=== PATIENT | male | born 1995 | race Caucasian/White ===

== ENCOUNTER 2020-04-03 06:54 | Outpatient (NON) | payer BC, SELFPAY ==
[2020-04-04 01:24] LABS: SARS-CoV-2 RNA PCR Negative
== END 2020-04-03 06:55 ==
PROVIDERS: PCP Family Medicine; Visit Provider Family Medicine
DX: R68.89 Other general symptoms and signs (principal); Z20.828 Contact with and (suspected) exposure to other viral communicable diseases
CPT/HCPCS: 87635; C9803; U0003

== ENCOUNTER 2020-04-04 10:48 | Emergency (ER) | payer BC, SELFPAY ==
--- NOTE | ~2020-04-04 | XR_ITS ---
EXAMINATION: XR knee RT 3V DATE: 04/04/2020 11:27 INDICATION: Right knee pain. TECHNIQUE: 3 views of right knee were obtained. COMPARISON: Right tibia and fibula radiographs 02/15/2012 FINDINGS: Bone alignment is normal. No fracture. Joint spaces are normal. There is a large knee joint effusion. IMPRESSION: 1. Large knee joint effusion. Reviewed, dictated and finalized at location A. INE MAINTENANCE
[2020-04-04 10:57] VITALS: PULSE 85; RESP 18; TEMP 35.6; O2SAT 97
--- NOTE | 2020-04-04 11:26 | ED.GENADULT ---
HPI - General Adult General Chief complaint: Extremity Injury, Lower <Sean Juares PA-C - Last Filed: 04/04/20 12:21> Stated complaint: right knee dislocation since sunday <Sean Juares PA-C - Last Filed: 04/04/20 12:21> Time Seen by Provider: 04/04/20 10:50 <Sean Juares PA-C - Last Filed: 04/04/20 12:21> Source: patient <Sean Juares PA-C - Last Filed: 04/04/20 12:21> Mode of arrival: ambulatory <Sean Juares PA-C - Last Filed: 04/04/20 12:21> Limitations: no limitations <Sean Juares PA-C - Last Filed: 04/04/20 12:21> History of Present Illness HPI narrative: Patient is a 24-year-old male who presents with right knee pain patient on Sunday had dislocated his patella and fell onto the right knee was evaluated yesterday at urgent care sent home and then called yesterday evening by the urgent care radiologist instructing him that his patella may be displaced and he needs to go and have it evaluated patient presents for this patient notes swelling and moderate aching pain of the knee joint patient denies other injuries or complaints and on arrival is in the room in no distress <Sean Juares PA-C - Last Filed: 04/04/20 12:21> Related Data Allergies/adverse reactions: Allergies Allergy/AdvReac Type Severity Reaction Status Date / Time fluoxetine Allergy Unknown Headache Verified 04/04/20 11:05 nickel Allergy Unknown Skin Verified 04/04/20 11:05 Reaction <Sean Juares PA-C - Last Filed: 04/04/20 12:21> Review of Systems Review of Systems: All systems reviewed & are unremarkable except as noted in HPI and below <Sean Juares PA-C - Last Filed: 04/04/20 12:21> PMFSH Social History Social History: Social History Alcohol intake: never <Sean Juares PA-C - Last Filed: 04/04/20 12:21> Exam Narrative: Exam Narrative: GENERAL: Well-appearing, well-nourished, and in no acute distress. HEAD: Normocephalic, atraumatic. EYES: PERRLA and EOMI. ENT: Nares clear, no rhinorrhea or epistaxis. Mucous membranes moist. EXTREMITIES: Swelling and tenderness of the right knee joint SKIN: Warm, dry, no rash. NEURO: No focal deficits. Alert and oriented x3. Neurovascularly intact. Capillary refill less than 2 seconds PSYCH: Normal mood and affect. <KEM Joyce Last Filed: 04/04/20 12:21> Course Course Emergency Course: Patient placed in the immobilizer will follow with orthopedist for further evaluation neurovascularly intact pain well tolerated felt appropriate for outpatient reevaluation <KEM Joyce Last Filed: 04/04/20 12:21> Vital Signs Vital signs: Vital Signs Temperature 96.1 F L 04/04/20 10:57 Pulse Rate 85 04/04/20 10:57 Respiratory Rate 18 04/04/20 10:57 Pulse Oximetry 97 04/04/20 10:57 Temperature 98.1 F 04/04/20 12:29 Pulse Rate 78 04/04/20 12:32 Respiratory Rate 16 04/04/20 12:29 Blood Pressure 148/88 H 04/04/20 12:32 Pulse Oximetry 100 04/04/20 12:32 <KEM Joyce Last Filed: 04/04/20 12:21> Vital Signs Temperature 96.1 F L 04/04/20 10:57 Pulse Rate 85 04/04/20 10:57 Respiratory Rate 18 04/04/20 10:57 Pulse Oximetry 97 04/04/20 10:57 Temperature 98.1 F 04/04/20 12:29 Pulse Rate 78 04/04/20 12:32 Respiratory Rate 16 04/04/20 12:29 Blood Pressure 148/88 H 04/04/20 12:32 Pulse Oximetry 100 04/04/20 12:32 <Asmita Dumas MD - Last Filed: 04/04/20 17:10> Medical Decision Making MDM Narrative Medical decision making narrative: Patients injury or pain is consistent with musculoskeletal etiology. No signs of neurological or vascular compromise on exam. Compartments and tisues are soft without signs of compartment syndrome. Pain is felt appropriate for further evaluation on an outpatient basis. <KEM Joyce Last File
[2020-04-04 12:04] VITALS: BP 127/67; PULSE 86; RESP 18; TEMP 36.1; O2SAT 100
[2020-04-04 12:29] VITALS: BP 132/51; PULSE 81; RESP 16; TEMP 36.7; O2SAT 100
[2020-04-04 12:32] VITALS: BP 148/88; PULSE 78; O2SAT 100
== END 2020-04-04 12:33 | disposition home or self-care (01) ==
PROVIDERS: Emergency Provider General Practice; PCP Family Medicine
DX: S83.104A Unspecified dislocation of right knee, initial encounter (principal); W19.XXXA Unspecified fall, initial encounter
CPT/HCPCS: 73562; 99283

== ENCOUNTER 2020-04-20 16:51 | Outpatient (CLI) | payer BC, SELFPAY ==
--- NOTE | ~2020-04-20 | MR_ITS ---
EXAMINATION: MR knee RT wo con DATE: 04/20/2020 17:38 INDICATION: Unspecified dislocation of right patella, initial encounter. TECHNIQUE: Magnetic resonance imaging (MRI) of the right knee was performed without intravenous contr ast. Sequences included axial PD-weighted FS FSE, coronal PD-weighted FSE and PD-weighted FS FSE, sag ittal PD-weighted FSE, and sagittal T2-weighted FS FSE. COMPARISON: Right knee radiographs 04/04/2020 FINDINGS: Medial compartment: Medial meniscus is normal. Medial compartment cartilage is normal. Lateral compartment: Lateral meniscus is normal. Lateral compartment cartilage is normal. Patellofemoral compartment: Patellar cartilage is normal. Trochlear dysplasia is noted. The trochlear cartilage is normal. Ligaments and tendons: The anterior and posterior cruciate ligaments are intact. Medial collateral ligament is intact. There is a tear of the medial retinaculum. Lateral collateral ligament complex is intact. There is mild pa tellar tendinopathy. Fluid: There is a moderate-sized knee joint effusion. There is a small Tapia's cyst. There is mild superfici al infrapatellar bursitis. Osseous/other: There is bone marrow edema-like signal intensity in distal medial patella and in lateral aspect of la teral femoral condyle, consistent with kissing contusions from patellar dislocation-relocation injury . IMPRESSION: 1. Patellar dislocation-relocation injury. No cartilage injury. 2. Moderate-sized knee joint effusion. 3. Small Tapia's cyst. Reviewed, dictated and finalized at location A. R WRAPPING MACHINE OPERATOR
== END 2020-04-20 16:52 | disposition home or self-care (01) ==
PROVIDERS: PCP Family Medicine; Visit Provider Orthopaedic Surgery
DX: S83.004A Unspecified dislocation of right patella, initial encounter (principal); X58.XXXA Exposure to other specified factors, initial encounter; M71.21 Synovial cyst of popliteal space [Baker], right knee; M25.461 Effusion, right knee
CPT/HCPCS: 73721

== ENCOUNTER 2021-05-15 10:55 | Emergency (ER) | payer BC, SELFPAY ==
[2021-05-15 11:01] VITALS: BP 143/73; PULSE 65; RESP 16; TEMP 36.2; O2SAT 98
--- NOTE | 2021-05-15 12:34 | ED.GENADULT ---
HPI - General Adult General Chief complaint: Ear Stated complaint: left ear clogged Time Seen by Provider: 05/15/21 11:03 Source: patient Mode of arrival: ambulatory Limitations: no limitations History of Present Illness HPI narrative: Patient reports cold-like symptoms and intermittent pain to his ears over the past few days. Patient reports that the pain to the left ear and has been more consistent and he has had muffled hearing. Patient denies any bleeding or drainage from his ear. Patient reports having a history of increased earwax buildup, but has not been having it managed recently. He reports he had a doctor appointment but did n't go due to being caught up at work. He denies fever, chills, or any emergent symptoms. Related Data Allergies Allergy/AdvReac Type Severity Reaction Status Date / Time fluoxetine Allergy Unknown Headache Verified 05/15/21 11:04 nickel Allergy Unknown Skin Verified 05/15/21 11:04 Reaction Review of Systems Review of Systems: CONSTITUTIONAL: Denies fever, chills, or sweats. EYES: Denies visual changes, redness, or discharge. ENT: Reports otalgia denies rhinorrhea, congestion, sore throat CARDIOVASCULAR: Denies chest pain, palpitations, or edema. RESPIRATORY: Denies cough or dyspnea. GASTROINTESTINAL: Denies abdominal pain, nausea, vomiting, or diarrhea. GENITOURINARY: Denies dysuria or hematuria. SKIN: Denies rash or itching. MUSCULOSKELETAL: Denies back pain, joint pain, or myalgia. NEUROLOGIC: Denies headache, numbness, dizziness, or weakness. PSYCHIATRIC: Denies anxiety or depression. [facility] Past Medical History Medical History Anxiety Dislocation of right patella Effusion, right knee Social History Social History Second hand tobacco smoke exposure: No Alcohol intake: current Drinks per week: 6 Substance use: never Substance use type: does not use Gender identity (if verbalized by the patient): Male Exam Narrative: GENERAL: Well-appearing, well-nourished, and in no acute distress. HEAD: Normocephalic, atraumatic. EYES: PERRLA and EOMI. ENT: Nares clear, no rhinorrhea or epistaxis. Mucous membranes moist. Oropharynx without tonsillar hypertrophy exudate or other lesions. Unable to visualize TM as B/L ear canals impacted with hard dry wax. CHEST: Clear to auscultation. No respiratory distress. No wheezes rales or rhonchi HEART: Regular rate and rhythm. EXTREMITIES: Normal range of motion. No edema. SKIN: Warm, dry, no rash. NEURO: No focal deficits. Alert and oriented x3. PSYCH: Normal mood and affect. Course Vital Signs Vital signs: Vital Signs Temperature 97.2 F L 05/15/21 11:01 Pulse Rate 65 05/15/21 11:01 Respiratory Rate 16 05/15/21 11:01 Blood Pressure 143/73 H 05/15/21 11:01 Pulse Oximetry 98 05/15/21 11:01 Temperature 97.2 F L 05/15/21 11:01 Pulse Rate 65 05/15/21 11:01 Respiratory Rate 16 05/15/21 11:01 Blood Pressure 143/73 H 05/15/21 11:01 Pulse Oximetry 98 05/15/21 11:01 Medical Decision Making MDM Narrative Medical decision making narrative: Patient ear drops had to be ordered from pharmacy. Will have ears irrigated so that TM can be visualized as at this time the wax is so thick and dry filling the entire canals. Patient has been angry regarding wait time with nurse receiving drops from pharmacy & irrigation. He told the tech he was leaving and going to another place where his condition will be managed immediately. Was unable to reassess TM and irrigation not performed. Vital Signs Vital Signs: Vital Signs Temperature 97.2 F L 05/15/21 11:01 Pulse Rate 65 05/15/21 11:01 Respiratory Rate 16 05/15/21 11:01 Blood Pressure 143/73 H 05/15/21 11:01 Pulse Oximetry 98 05/15/21 11:01 Temperature 97.2 F L 05/15/21 11:01 Pulse Rate 65 05/15/21 11:01 Respiratory Rate 16 05/15/21
--- NOTE | 2021-05-15 12:40 | PC.NURSE ---
ear drops received from pharmacy. informed by emergency medical dispatcher that pt was tired of waiting. stated fuck this place and left dept.
== END 2021-05-16 03:28 | disposition left against medical advice (07) ==
PROVIDERS: Emergency Provider Emergency Medicine; PCP Family Medicine
DX: H92.02 Otalgia, left ear (principal)
CPT/HCPCS: 99283; A9270

== ENCOUNTER 2021-05-15 12:47 | Emergency (ER) | payer BC, SELFPAY ==
[2021-05-15 12:51] VITALS: BP 150/85; PULSE 68; RESP 16; TEMP 36.4; O2SAT 98
--- NOTE | 2021-05-15 12:51 | ED.EAR ---
HPI - Ear Problem General Chief complaint: Ear Stated complaint: L EAR CLOGGED Time Seen by Provider: 05/15/21 12:51 Source: patient and RN notes reviewed History of Present Illness HPI Narrative: Patient is a 25-year-old male who presents the urgent care with complaints of left ear clogged. Patient states that for the last 3 weeks he has been having issues on and off with inability to hear. Patient states that on Sunday it got much worse and is now causing some pressure to the ear. Patient has been using Debrox [id number] without any relief. Denies of any drainage from the ear, fever, nausea or vomiting. Denies of any upper upper respiratory complaints. No other acute complaints. No acute distress noted. Patient aware of the plan of care. Some parts of this dictation were generated by voice recognition software and may contain typographical and/or grammatical inaccuracies. Related Data Allergies Allergy/AdvReac Type Severity Reaction Status Date / Time fluoxetine Allergy Unknown Headache Verified 05/15/21 12:52 nickel Allergy Unknown Skin Verified 05/15/21 12:52 Reaction Review of Systems Review of Systems: CONSTITUTIONAL: Denies fever, chills, or sweats. EYES: Denies visual changes, redness, or discharge. ENT: Denies rhinorrhea, congestion, sore throat. Reports of decreased hearing on the left CARDIOVASCULAR: Denies chest pain, palpitations, or edema. RESPIRATORY: Denies cough or dyspnea. GASTROINTESTINAL: Denies abdominal pain, nausea, vomiting, or diarrhea. GENITOURINARY: Denies dysuria or hematuria. SKIN: Denies rash or itching. MUSCULOSKELETAL: Denies back pain, joint pain, or myalgia. NEUROLOGIC: Denies headache, numbness, or weakness. All other systems reviewed are negative, except as documented in HPI. [facility] Past Medical History Medical History Anxiety Dislocation of right patella Effusion, right knee Social History Social History Second hand tobacco smoke exposure: No Alcohol intake: current Drinks per week: 6 Substance use: never Substance use type: does not use Gender identity (if verbalized by the patient): Male Comments At the time of my signature, I reviewed and agree with the nursing past medical, surgical, social, and family history. There is no relevant family history pertinent to the patient complaint. Exam Narrative: GENERAL: This is a well-nourished, well-developed patient, in no apparent distress. HEAD: normocephalic, atraumatic. EYES: PERRL. Sclera clear/white. Vision is grossly intact. EARS: External ears normal, auditory canals clear and without drainage, unable to see bilateral TMs due to cerumen impaction. Hearing grossly intact. NOSE: External nose normal with no obvious nasal discharge, nares without redness, no rhinorrhea. THROAT: Mucous membranes moist NECK: Neck supple CARDIOVASCULAR: Regular rate and rhythm without murmurs, gallops, or rubs. RESPIRATORY: Clear to auscultation. Breath sounds equal bilaterally. No wheezes, rales, or rhonchi. SKIN: warm, intact with no suspicious lesions or rash, good texture and turgor. NEURO: awake, alert, and oriented to person, place and time. There were no obvious focal neurologic abnormalities. EXTREMITIES: No clubbing, cyanosis, or edema. Course Course Level of Care: Express Care Visit Vital Signs Vital signs: Vital Signs Temperature 97.5 F L 05/15/21 12:51 Pulse Rate 68 05/15/21 12:51 Respiratory Rate 16 05/15/21 12:51 Blood Pressure 150/85 H 05/15/21 12:51 Pulse Oximetry 98 05/15/21 12:51 Temperature 97.5 F L 05/15/21 12:51 Pulse Rate 68 05/15/21 12:51 Respiratory Rate 16 05/15/21 12:51 Blood Pressure 150/85 H 05/15/21 12:51 Pulse Oximetry 98 05/15/21 12:51 Reviewed-patient is informed that they may have pre-hypertension or hypertension based on a blood pressure reading in the depa
== END 2021-05-15 13:12 | disposition home or self-care (01) ==
PROVIDERS: Emergency Provider Nurse Practitioner Family; PCP Family Medicine
DX: H61.23 Impacted cerumen, bilateral (principal); F41.9 Anxiety disorder, unspecified
CPT/HCPCS: 69209; 99212; G0463

== ENCOUNTER 2022-03-13 16:55 | Outpatient (CLI) | payer BC, SELFPAY ==
[2022-03-13 17:55] LABS: Influenza A QL RT-PCR Negative (Negative); Influenza B QL RT-PCR Negative (Negative)
== END 2022-03-13 16:56 | disposition home or self-care (01) ==
LOC: ANHLAB 16:59
PROVIDERS: PCP Family Medicine; Visit Provider Family Medicine
DX: R68.89 Other general symptoms and signs (principal)
CPT/HCPCS: 87502

== ENCOUNTER 2023-08-11 08:06 | Emergency (ER) | payer OTHER, MEDICAID, SELFPAY ==
--- NOTE | 2023-08-11 08:10 | ED.GENADULT ---
HPI - General Adult General Chief complaint: Extremity Injury, Lower Stated complaint: Injured Knee Time Seen by Provider: 08/11/23 08:10 Source: patient Mode of arrival: ambulatory Limitations: no limitations History of Present Illness HPI narrative: 28-year-old male patient presents to the [facility] with complaints of right knee pain. Patient states he was playing softball yesterday and fell and skinned his right knee. Patient states he did go home and clean it with soap water and apply antibiotic ointment but states had trouble sleeping last night due to the pain. Patient denies taking any pain medication for the pain. Patient states he is able to walk on it does not think it is broken but does have a lot of pain over the abrasion area. Related Data Allergies Allergy/AdvReac Type Severity Reaction Status Date / Time fluoxetine Allergy Unknown Headache Verified 08/11/23 08:18 nickel Allergy Unknown Skin Verified 08/11/23 08:18 Reaction Review of Systems Review of Systems: CONSTITUTIONAL: Denies fever, chills, or sweats. EYES: Denies visual changes, redness, or discharge. ENT: Denies rhinorrhea, congestion, sore throat, or otalgia. CARDIOVASCULAR: Denies chest pain, palpitations, or edema. RESPIRATORY: Denies cough or dyspnea. GASTROINTESTINAL: Denies abdominal pain, nausea, vomiting, or diarrhea. GENITOURINARY: Denies dysuria or hematuria. SKIN: Denies rash or itching. MUSCULOSKELETAL: Denies back pain, joint pain, or myalgia. Positive wound to right knee NEUROLOGIC: Denies headache, numbness, or weakness. PSYCHIATRIC: Denies anxiety or depression. [facility] Past Medical History Medical History Anxiety Dislocation of right patella Effusion, right knee Social History Social History Smoking status: Never smoker Second hand tobacco smoke exposure: No Alcohol intake: current Drinks per week: 6 Substance use: never Substance use type: does not use Lack of Transportation: No Lack of Food: Never True Current Housing: I Have Housing Concerned About Future Housing: No Difficulty Paying Gas/Electric Bills: No Difficulty Paying for Meds: No Currently Unemployed: No Education: High School Diploma/GED Difficulty w/ Childcare or Family Care: No Living arrangements: with family Occupation/Education: occupation Gender identity (if verbalized by the patient): Male Comments At the time of my signature I agree with nursing past medical history, surgical, social, and family history. There is no relevant family history pertinent to the presenting complaint. Exam Narrative: GENERAL: Well-appearing, well-nourished, and in no acute distress. HEAD: Normocephalic, atraumatic. EYES: PERRLA and EOMI. ENT: Nares clear, no rhinorrhea or epistaxis. Mucous membranes moist. NECK: Supple. No lymphadenopathy CHEST: Clear to auscultation. No respiratory distress. HEART: Regular rate and rhythm. No murmur heard. Normal peripheral pulses. ABDOMEN: Soft, nontender, nondistended, normal active bowel sounds. EXTREMITIES: Patient is able to bear weight and ambulate without pain. patient does have an approximate 5 Center by 6 cm abrasion to proximal right knee. The wound does have some yellow pus see discharge noted. There is surrounding erythema and it is tender to the touch. No STS, or obvious effusion. The R knee is without obvious asymmetry or deformity when compared to the L knee. Patient is able to do deep knee bend with symmetry, fully extend knee, internal and external rotation. No tenderness to palpation of the patella, no effusion or ballottement. No tenderness over the infrapatellar tendon. No tenderness over the medial or lateral joint lone ot the medial or lateral tibial plateaus. no tenderness over the proximal fibular head. no tenderness, fullness, or mass of the popliteal fossa. No qu
[2023-08-11 08:14] VITALS: BP 135/87; PULSE 80; RESP 16; TEMP 36.5; O2SAT 98
== END 2023-08-11 08:35 | disposition home or self-care (01) ==
PROVIDERS: Emergency Provider Nurse Practitioner Family; PCP Family Medicine
DX: S80.211A Abrasion, right knee, initial encounter (principal); W19.XXXA Unspecified fall, initial encounter; Y93.64 Activity, baseball
CPT/HCPCS: 99213; G0463

== ENCOUNTER 2024-05-01 13:48 | Emergency (ER) | payer OTHER, SELFPAY ==
--- NOTE | ~2024-05-01 | XR_ITS ---
EXAMINATION: XR chest 2V DATE: 05/01/2024 14:35 INDICATION: Bilateral upper chest pain. TECHNIQUE: Frontal and lateral views of the chest were obtained on 3 radiographs. COMPARISON: None. FINDINGS: There is no pneumonia, pleural effusion, or pneumothorax. The heart size is normal. IMPRESSION: 1. No acute cardiopulmonary disease. Reviewed, dictated and finalized at location [facility] [employer] [facility]
[2024-05-01 14:07] VITALS: BP 135/85; PULSE 85; RESP 16; TEMP 37.1; O2SAT 100
--- NOTE | 2024-05-01 14:23 | ECG_ITS ---
Test Date: 2024-05-01 14:40:29 Measurements Intervals [place] Rate: 81 P: 24 ME: 156 QRS: 33 QRSD: 88 T: 42 QT: 356 QTc: 414 Interpretive Statements SINUS RHYTHM No previous ECG available for comparison Electronically Signed On 05-01-2024 15:21:06 ASSISTANT MERCHANDISER by Yasmani Tellez M.D.
--- NOTE | 2024-05-01 14:31 | ED_ITS ---
HPI - Chest Pain General Chief Complaint: Chest Pain Stated Complaint: WAKES UP WITH CHEST PAIN Time Seen by Provider: 05/01/24 14:11 Source: patient and RN notes reviewed Mode of arrival: ambulatory Limitations: no limitations History of Present Illness HPI narrative: Patient presents today complaining of a 2 week history of intermittent bilateral upper chest pain that is typically present when patient wakes up in the morning and resolved after 1-2 hours. States, it feels like a muscle pain. Patient states his pain is worsened with bending over or with taking a deep breath. He is currently pain-free at this time. He has tried no oqii-pml-[id number] treatment prior to arrival. Denies shortness of breath, nausea vomiting, cough, dizziness or lightheadedness, blurred vision headache, heartburn or GI symptoms. States prior to onset of these symptoms patient had COVID-19 at the end of March and states these symptoms started during his illness. The COVID symptoms have resolved but these current symptoms have persisted. Related Data Allergies Allergy/AdvReac Type Severity Reaction Status Date / Time fluoxetine Allergy Unknown Headache Verified 08/11/23 08:18 nickel Allergy Unknown Skin Verified 08/11/23 08:18 Reaction Review of Systems Review of Systems: CONSTITUTIONAL: Denies body aches, fever, chills, or sweats. EYES: Denies visual changes, redness, or discharge. ENT: Denies rhinorrhea, congestion, sore throat, or otalgia. CARDIOVASCULAR: Denies palpitations, or edema.+ chest pain RESPIRATORY: Denies cough or dyspnea. GASTROINTESTINAL: Denies abdominal pain, nausea, vomiting, or diarrhea. GENITOURINARY: Denies dysuria or hematuria. SKIN: Denies rash, itching, or wounds. MUSCULOSKELETAL: Denies back pain, joint pain, or myalgia. NEUROLOGIC: Denies headache, numbness, tingling, or weakness. PSYCH: Denies depression or anxiety. [facility] Past Medical History Medical History Anxiety Dislocation of right patella Effusion, right knee Social History Social History Smoking status: Never smoker Second hand tobacco smoke exposure: No Alcohol intake: current Drinks per week: 6 Substance use: never Substance use type: does not use Lack of Transportation: No Lack of Food: Never True Current Housing: I Have Housing Concerned About Future Housing: No Difficulty Paying Gas/Electric Bills: No Difficulty Paying for Meds: No Currently Unemployed: No Education: High School Diploma/GED Difficulty w/ Childcare or Family Care: No Living arrangements: with family Occupation/Education: occupation Gender identity (if verbalized by the patient): Male Comments At time of signature, I have reviewed and agree with nursing past medical, surgical, social and family history unless otherwise noted. Please see nursing chart for further information. There is no relevant family history pertinent to the presenting complaint Exam Narrative: GENERAL: Well-appearing, well-nourished, and in no acute distress. HEAD: Normocephalic, atraumatic. EYES: EOMI. No redness or drainage. Conjunctivae normal. ENT: Mucous membranes pink and moist. NECK: Normal AROM. CHEST: No respiratory distress. Clear to auscultation. Chest is nontender to palpation HEART: Regular rate and rhythm. No murmur appreciated. Normal peripheral pulses. EXTREMITIES: Normal range of motion. No edema. SKIN: Warm, dry, no rash. Capillary refill normal. Normal skin turgor. NEURO: No focal deficits. Alert and oriented x3. Gait steady. PSYCH: Normal affect. No signs of depression or anxiety. Course Course Level of Care: Express Care Visit Vital Signs Vital signs: Vital Signs Temperature 98.8 F 05/01/24 14:07 Pulse Rate 85 05/01/24 14:07 Respiratory Rate 05/01/24 14:07 Blood Pressure 135/85 05/01/24 14:07 Pulse Oximetry 100 05/01/24 14:07 Temperature 98.8 F 05/01/24 14:07 Pulse Rate 85 05/01/24 14:07 Respiratory Rate 16 05/01/24 14:07 Blood Pressure 135/85 05/01/24 14:07 Pulse Oximetry 100 05/01/24 14:07 Reviewed MDM - Chest Pain MDM Narrative Medical decision making narrative: Chest x-ray an EKG normal. Recommend patient start an anti-inflammatory such as Aleve or ibuprofen to help with his discomfort if needed. Patient has an appointment to initiate care with a new PCP in June. Instructed to mention if symptoms persist. ED precautions given if patient's worsen. Differential Diagnosis Differential diagnosis: Likely costochondritis and other (Pleurisy, chest wall pain, pericarditis) Imaging Data Radiologist's impression: ITS Impressions Chest X-Ray 05/01/24 14:40 IMPRESSION: 1. No acute cardiopulmonary disease. ECG Data EKG #1: Attestation: I personally reviewed and interpreted this ECG as follows: ECG completion date: 05/01/24 ECG completion time: 14:40 Prior ECG tracings: not available for review Interpretation: Normal sinus rhythm. Heart rate 81. IN interval 156. Critical Care Time Critical Care Time Critical Care Time: No Discharge Plan Discharge Clinical Impression: Intermittent chest pain Patient Disposition: Home, Self-Care Condition: Stable Instructions: Chest Wall Pain (ED) Additional Instructions: Your EKG and chest x-ray are normal today. Try an anti-inflammatory for your discomfort if needed such as ibuprofen or Aleve. As discussed, if symptoms change in any way to include additional symptoms such as shortness of breath, dizziness, lightheadedness, or if your symptoms become more frequent, please go to the ER immediately for further evaluation and treatment. Your blood pressure was elevated above 120/80 today at Urgent Care. This puts you above the threshold for follow up. Please schedule a followup visit with your personal physician as soon as possible, for further evaluation and treatment. Even blood pressure exceeding 120/80 may indicate pre-hypertension. Patient Language: Icelandic Prescriptions: No Action mupirocin 2 % ointment 1 applic topical BID Qty: 30 0RF cephalexin 500 mg tablet 500 mg PO Q12H 7 Days Qty: 14 0RF Follow-up/Referrals: UNKNOWN,DOCTOR [Primary Care Provider] - Time of Disposition: 14:48
== END 2024-05-01 14:53 | disposition home or self-care (01) ==
PROVIDERS: Emergency Provider Nurse Practitioner
DX: R07.9 Chest pain, unspecified (principal)
CPT/HCPCS: 71046; 93005; 99213; G0463

== ENCOUNTER 2024-06-12 17:48 | Emergency (ER) | payer OTHER, SELFPAY ==
[2024-06-12 17:49] VITALS: BP 156/95; PULSE 87; RESP 15; TEMP 36.4; O2SAT 98
--- NOTE | 2024-06-12 17:52 | ED.CHESTPAIN ---
HPI - Chest Pain General Chief Complaint: Chest Pain Stated Complaint: chest pain Time Seen by Provider: 06/12/24 17:52 Focused HPI: This is a 29 year old male that presents to the ER for chest pain. Reports the pain feels like pressure. Worse with deep breathing, bending forward. This has been ongoing intermittently the last couple of months. Denies shortness of breath, lower extremity edema. GENERAL: Well-appearing, well-nourished, and in no acute distress. HEAD: Normocephalic, atraumatic. CHEST: Clear to auscultation. ?No respiratory distress. HEART: Regular rate and rhythm.? NEURO: ?Alert and oriented x3. Patient screened in triage and initial orders placed.? ?Additional care and disposition to be based upon?diagnostic testing and treatment. Related Data Allergies Allergy/AdvReac Type Severity Reaction Status Date / Time fluoxetine Allergy Unknown Headache Verified 06/12/24 17:48 nickel Allergy Unknown Skin Verified 06/12/24 17:48 Reaction PMFSH Past Medical History Medical History Anxiety Dislocation of right patella Effusion, right knee Social History Social History Smoking status: Never smoker Second hand tobacco smoke exposure: No Alcohol intake: current Drinks per week: 6 Substance use: never Substance use type: does not use Lack of Transportation: No Lack of Food: Never True Current Housing: I Have Housing Concerned About Future Housing: No Difficulty Paying Gas/Electric Bills: No Difficulty Paying for Meds: No Currently Unemployed: No Education: High School Diploma/GED Difficulty w/ Childcare or Family Care: No Living arrangements: with family Occupation/Education: occupation Gender identity (if verbalized by the patient): Male Course Vital Signs Vital signs: Vital Signs Temperature 97.6 F 06/12/24 17:49 Pulse Rate 87 06/12/24 17:49 Respiratory Rate 15 06/12/24 17:49 Blood Pressure 156/95 H 06/12/24 17:49 Pulse Oximetry 98 06/12/24 17:49 Oxygen Delivery Room Air 06/12/24 17:49 Temperature 98.1 F 06/12/24 23:15 Pulse Rate 117 H 06/12/24 23:15 Respiratory Rate 16 06/12/24 23:15 Blood Pressure 145/98 H 06/12/24 23:15 Pulse Oximetry 98 06/12/24 23:15 Oxygen Delivery Room Air 06/12/24 17:49 MDM - Chest Pain MDM Narrative Medical decision making narrative: Patient left after medical screening exam and initial workup and before any further evaluation or management Lab Data 06/12/24 18:02 06/12/24 18:02 Labs: Lab Results 06/12/24 Range/Units 18:02 WBC 7.4 (4.5-10.0) K/mm3 RBC 5.48 (4.6-6.20) M/mm3 Hgb 16.3 (14.0-18.0) g/dL Hct 48.0 (42.0-52.0) % MCV 87.6 (80-100) fl MCH 29.7 (26-34) pg MCHC 34.0 (32-36) g/dl RDW 12.2 (11.5-14.5) % Plt Count 314 (150-375) k/mm3 MPV 10.0 (7.4-10.4) fl Immature Gran % (Auto) 0.3 (0-0.5) % Neut % (Auto) 58.2 (45.5-73.1) % Lymph % (Auto) 29.8 (18.3-44.2) % [place] % (Auto) 7.1 (2.6-8.5) % Eos % (Auto) 4.2 (0-4.4) % Baso % (Auto) 0.4 (0.2-1.2) % Lymph # (Auto) 2.22 (0.9-3.2) K/mm3 [place] # (Auto) 0.5 (0.1-0.6) K/mm3 Eos # (Auto) 0.3 (0-0.3) K/mm3 Baso # (Auto) 0.0 (0.0-0.1) K/mm3 Abs Immat Gran (auto) 0.02 (0.00-0.031) K/mm3 Absolute Neuts (auto) 4.3 (1.3-6.7) K/mm3 Absolute Nucleated RBC 0.000 (0.0-0.012) K/mm3 Nucleated RBC % 0.0 (0.0-0.2) % PT 13.5 (11.1-14.7) Seconds INR 1.0 APTT 27.0 (22.3-36.8) Seconds Sodium 141 (137-145) mmol/L Potassium 3.6 (3.4-5.0) mmol/L Chloride 102 (98-107) mmol/L Carbon Dioxide 26 (22-30) mmol/L Anion Gap 13 H (4-12) mmol/L BUN 15 (9-20) mg/dL Creatinine 1.16 (0.7-1.3) mg/dL Estim Creat Clear Calc 111 ml/min Estimated GFR > 60 (59 - ) Glucose 93 (65-110) mg/dL Calcium 9.7 (8.4-10.2) mg/dL Total Bilirubin 0.6 (0.2-1.3) mg/dL AST 29 (17-59) U/L ALT 30 (6-50) U/L Alkaline Phosphatase 77 (38-126) U/L Troponin I < 0.012 (0.000-0.034) ng/mL Total Protein 8.0 (6.3-8.2) g/dL Albumin 4.8 (3.5-5.1) g/dL Lipase 59 (23-300) U/L Imaging Data Radiologist's impression: ITS Impressions Chest X-Ray 06/12/24 19:00 IMPRESSION: No acute cardiopulmonary pathology. Discharge Plan Discharge Clinical Impression: Chest pain Qualifiers: Chest pain type: unspecified Qualified Code(s): R07.9 - Chest pain, unspecified Patient Disposition: Elopement After Seen by Prov Condition: Guarded Prognosis Patient Language: Armenian Prescriptions: No Action mupirocin 2 % ointment 1 applic topical BID Qty: 30 0RF cephalexin 500 mg tablet 500 mg PO Q12H 7 Days Qty: 14 0RF Follow-up/Referrals: Rodrigo Harding DO [Primary Care Provider] -
[2024-06-12 18:08] LABS: Basophils Percent Auto 0.4 % (0.2-1.2); Eosinophils Absolute Auto 0.3 K/mm3 (0-0.3); Eosinophils Percent Auto 4.2 % (0-4.4); Hemoglobin 16.3 g/dL (14.0-18.0); Immature Granulocyte Absolute 0.02 K/mm3 (0.00-0.031); Immature Granulocyte Percent A 0.3 % (0-0.5); Lymphocytes Absolute Auto 2.22 K/mm3 (0.9-3.2); Lymphocytes Percent Auto 29.8 % (18.3-44.2); Mean Corpuscular Hemoglobin 29.7 pg (26-34); Mean Corpuscular Volume 87.6 fl (80-100); Monocytes Absolute Auto 0.5 K/mm3 (0.1-0.6); Monocytes Percent Auto 7.1 % (2.6-8.5); Neutrophils Absolute Auto 4.3 K/mm3 (1.3-6.7); Neutrophils Percent Auto 58.2 % (45.5-73.1); Platelet Count Result 314 k/mm3 (150-375); Red Blood Count 5.48 M/mm3 (4.6-6.20); Red Cell Distribution Width 12.2 % (11.5-14.5); White Blood Count 7.4 K/mm3 (4.5-10.0)
[2024-06-12 18:24] LABS: Prothrombin Time 13.5 Seconds (11.1-14.7)
[2024-06-12 18:40] LABS: Alanine Aminotransferase 30 U/L (6-50); Albumin Level 4.8 g/dL (3.5-5.1); Alkaline Phosphatase 77 U/L (38-126); Anion Gap 13 mmol/L (4-12); Aspartate Amino Transferase 29 U/L (17-59); Bilirubin,Total 0.6 mg/dL (0.2-1.3); Blood Urea Nitrogen 15 mg/dL (9-20); Calcium 9.7 mg/dL (8.4-10.2); Carbon Dioxide 26 mmol/L (22-30); Chloride 102 mmol/L (98-107); Estimated CRCL calculation 111 ml/min; Estimated Glomerular Filt Rate > 60; Glucose 93 mg/dL (65-110); Lipase 59 U/L (23-300); Potassium 3.6 mmol/L (3.4-5.0); Sodium 141 mmol/L (137-145)
[2024-06-12 18:42] LABS: Troponin I < 0.012 ng/mL (0.000-0.034)
[2024-06-12 20:16] VITALS: BP 154/93; PULSE 52; RESP 20; O2SAT 100
[2024-06-12 23:15] VITALS: BP 145/98; PULSE 117; RESP 16; TEMP 36.7; O2SAT 98
== END 2024-06-12 23:30 | disposition left against medical advice (07) ==
LOC: ANHED 06-13 00:49
PROVIDERS: Emergency Medicine; Emergency Provider Physician Assistant; PCP Internal Medicine
DX: R07.9 Chest pain, unspecified (principal)
CPT/HCPCS: 36415; 71046; 80053; 83690; 84484; 85025; 85610; 85730; 93005; 99284